=== PATIENT | male | born 1985 | race Asian ===

== ENCOUNTER 2017-05-25 19:12 | Emergency (ER) | payer MEDICAID ==
[~2017-05-25] VITALS: Ht 160 cm; Wt 66.4 kg
[~2017-05-25 19:12] MED LIST: CLON-527 PO; CLON-528 PO; CLOZ100T31 PO; PALI234D IM
[2017-05-25] MEDS ORDERED: diphenhydrAMINE 25mg capsule PO ONE (19:45)
[2017-05-25 20:01] LABS: BASOPHILS % (AUTO) 0.3 % (0-1); EOSINOPHILS % (AUTO) 0.5 % (0-6); HEMATOCRIT 45.9 % (42.0-52.0); HEMOGLOBIN 14.6 g/dl (14.0-17.9); LYMPHOCYTES # (AUTO) 1.5 X10'3 (1.1-4.8); LYMPHOCYTES % (AUTO) 16.7 % (21-51); MEAN CORPUSCULAR HEMOGLOBIN 21.4 PG (27.0-31.0); MEAN CORPUSCULAR HGB CONC 31.8 % (33.0-36.5); MEAN CORPUSCULAR VOLUME 67.3 FL (78-98); MEAN PLATELET VOLUME 8.2 FL (7.4-10.4); MONOCYTES # (AUTO) 0.3 X10'3 (0-0.9); MONOCYTES % (AUTO) 3.5 % (2-12); NEUTROPHILS # (AUTO) 7.3 X10'3 (1.8-7.7); PLATELET COUNT 286 X10'3 (140-440); RED BLOOD COUNT 6.81 X10'6 (4.70-6.10); RED CELL DISTRIBUTION WIDTH 15.6 % (11.5-14.5); WHITE BLOOD COUNT 9.2 X10'3 (4.5-11.0)
[2017-05-25 20:09] LABS: CLARITY,URINE CLEAR (Clear); COLOR,URINE STRAW (Yellow); GLUCOSE, URINE NEGATIVE (Neg); KETONES,URINE NEGATIVE (Neg); LEUKOCYTE ESTERASE ,URINE NEGATIVE (Neg); NITRITES, URINE NEGATIVE (Neg); OCCULT BLOOD,URINE NEGATIVE (Neg); PROTEIN,URINE NEGATIVE (Neg); UROBILINOGEN,URINE 0.2 E.U/dL (0.2-1.0)
[2017-05-25 20:11] LABS: UA COLLECTION TYPE CLN CATCH MIDSTREAM
[2017-05-25 20:15] LABS: URINE AMPHETAMINE SCREEN NEGATIVE (Neg); URINE BARBITUATE SCREEN NEGATIVE (Neg); URINE BENZODIAZEPINES SCREEN NEGATIVE (Neg); URINE CANNABINOID SCREEN NEGATIVE (Neg); URINE COCAINE SCREEN NEGATIVE (Neg); URINE METHADONE SCREEN NEGATIVE (Neg); URINE OPIATE SCREEN NEGATIVE (Neg); URINE PHENCYCLIDINE SCREEN NEGATIVE (Neg)
[2017-05-25 20:19] LABS: ALANINE AMINOTRANSFERASE 46 U/L (12-78); ALBUMIN 4.5 G/DL (3.4-5.0); ALBUMIN/GLOBULIN RATIO 1.2 (1.1-1.5); ALKALINE PHOSPHATASE 97 IU/L (46-116); ANION GAP 9 (8-16); ASPARTATE AMINO TRANSFERASE 26 U/L (10-37); BILIRUBIN,TOTAL 0.6 MG/DL (0.1-1.0); BLOOD UREA NITROGEN 10 MG/DL (7-18); BUN/CREATININE RATIO 11.2 (5.4-32.0); CALCIUM 9.3 MG/DL (8.5-10.1); CHLORIDE 101 MMOL/L (99-107); CREATININE 0.89 MG/DL (0.60-1.10); GLUCOSE 115 MG/DL (70-104); POTASSIUM 3.4 MMOL/L (3.5-5.1); SODIUM 140 MMOL/L (135-145); TOTAL CARBON DIOXIDE 29.8 MMOL/L (24-32); TOTAL PROTEIN 8.3 G/DL (6.4-8.2); eGFR > 90 ML/MIN
[2017-05-25 20:40] LABS: ANISOCYTOSIS 1+; MICROCYTOSIS 2+; PLATELET ESTIMATE NORMAL
[2017-05-25 21:07] LABS: ETHANOL < 0.010 GM/DL (0.0-0.010)
[2017-05-26 09:12] LABS: ACETAMINOPHEN < 2.0 UG/ML (10-30)
[2017-05-26] MEDS ORDERED: ARIP400S3 IM (14:15)
[2017-05-26] MEDS ORDERED: PALI234D IM (14:15)
[2017-05-26] MEDS ORDERED: paliperidone palmitate inj 234 MG/1.5 ML SYRINGE IM SCH (15:25)
[2017-05-26] MEDS ORDERED: aripiprazole 400mg suspension ER syringe IM SCH (15:25)
[2017-05-27 20:04] VITALS: BP 124/80
== END 2017-05-27 20:06 ==
LOC: ER 19:12
DX: R45.851 Suicidal ideations (principal); G24.9 Dystonia, unspecified; F20.9 Schizophrenia, unspecified; Z79.899 Other long term (current) drug therapy
CPT/HCPCS: 36415; 80053; 80305; 80320; 80329; 81003; 84443; 85025; 96372; 99285; A4353; Q0163

== ENCOUNTER 2022-04-28 11:27 | Emergency (ER) | payer MEDICAID ==
[~2022-04-28] VITALS: Ht 162.6 cm; Wt 63.6 kg
[~2022-04-28 11:27] MED LIST changes: +ARIP400S3 IM; -CLON-527 PO; -CLON-528 PO; -CLOZ100T31 PO
[2022-04-28 12:23] VITALS: BP 144/99
[2022-04-28] MEDS ORDERED: GUAI120015 PO (16:28)
[2022-04-28] MEDS ORDERED: ALBU6.7H14 INH (16:28)
== END 2022-04-28 17:19 | disposition home or self-care (01) ==
LOC: ER 11:27
DX: R05.9 Cough, unspecified (principal); F20.9 Schizophrenia, unspecified; Z79.899 Other long term (current) drug therapy; Z72.0 Tobacco use
CPT/HCPCS: 71046; 99283

== ENCOUNTER 2023-04-01 12:13 | Outpatient (CLI) | payer MEDICARE, MEDICAID ==
[~2023-04-01 12:13] MED LIST changes: +ALBU6.7H14 INH; +GUAI120015 PO
== END 2023-04-01 23:59 | disposition home or self-care (01) ==
LOC: RAD 12:13
PROVIDERS: ATTEND Nurse Practitioner Psychiatric/Mental Health
DX: Z79.899 Other long term (current) drug therapy (principal)
CPT/HCPCS: 93005

== ENCOUNTER 2024-03-02 09:31 | Outpatient (CLI) | payer MEDICARE, MEDICAID | END 2024-03-02 23:59 | disposition home or self-care (01) | LOC: RAD 09:31 | PROVIDERS: ATTEND Nurse Practitioner Psychiatric/Mental Health | DX: F20.0 Paranoid schizophrenia (principal); Z79.899 Other long term (current) drug therapy | CPT/HCPCS: 93005 ==